=== PATIENT | male | born 1950 | race Caucasian/White ===

== ENCOUNTER 2024-05-11 18:17 | Inpatient (IN) ==
[2024-05-11 19:26] LABS: ABS Basophils 0.1 10^3/uL (0.0-0.1); ABS Eosinophils 0.1 10^3/uL (0.0-0.5); ABS Lymphocytes 1.1 10^3/uL (1.0-4.8); ABS Monocytes 0.5 10^3/uL (0.0-1.1); ABS Neutrophils 5.1 10^3/uL (1.5-7.6); ABS Nucleated RBC 0.02 10^3/ul; Eosinophil % 0.8 %; Hemoglobin 14.8 g/dL (13.2-16.3); Lymphocyte % 15.4 %; Mean Corpuscular Hemoglobin 31.6 pg (27-33); Mean Corpuscular Volume 95.8 fL (80-97); Mean Platelet Volume 9.6 fL (7.5-11.2); Nucleated Red Blood Cells % 0.2 %/100WBC (0.0-0.8); Platelet Count 170 10^3/uL (150-450); Red Cell Distribution Width 15.7 % (12-17); White Blood Count 6.8 10^3/uL (3.6-10.2)
[2024-05-11 19:52] LABS: Albumin 3.8 g/dL (3.2-5.2); Albumin/Globulin Ratio 1.4 (1-3); Creatinine, Serum 1.53 mg/dL (0.67-1.17); Globulin 2.7 g/dL (2-4); Total Bilirubin 1.1 mg/dL (0.2-1.0); Total Protein 6.5 g/dL (6.4-8.9); eGFR CKD-EPI 47.1 (>60)
[2024-05-11 20:06] LABS: TSH Ultra Thyroid Stim Horm 8.17 mcIU/mL (0.34-5.60)
[2024-05-11 20:49] LABS: High Sensitivity Troponin 1 Hr 44 pg/mL (<20)
[2024-05-11] MEDS: Furosemide 40 mg/4 ml IV VIAL IV SLOW PU ONE (21:07)
[2024-05-11] MEDS: Heparin 5000 UNITS/ML 1 mL VIAL SUBCUT SCH (22:14)
[2024-05-11 22:49] LABS: Urine Appearance Clear; Urine Bilirubin Negative (Negative); Urine Blood Negative (Negative); Urine Color Light-Yellow; Urine Glucose Negative (Negative); Urine Ketones Negative (Negative); Urine Nitrite Negative (Negative); Urine Protein 1+ (>=30 mg/dL) (Negative); Urine Urobilinogen Negative (Negative); Urine pH 5.5 (5.0-8.0)
[2024-05-11 22:54] LABS: Urine Bacteria Absent /HPF (Absent); Urine Red Blood Cell 1+(3-5/hpf) /HPF (0-Trace); Urine White Blood Cell Trace(0-5/hpf) /HPF (0-Trace)
[2024-05-12 01:25] LABS: Free T4 0.83 ng/dL (0.61-1.12)
[2024-05-12 05:47] LABS: ABS Eosinophils 0.1 10^3/uL (0.0-0.5); ABS Lymphocytes 0.8 10^3/uL (1.0-4.8); ABS Monocytes 0.5 10^3/uL (0.0-1.1); Eosinophil % 1.2 %; Hematocrit 44.1 % (38-53); Hemoglobin 14.4 g/dL (13.2-16.3); Lymphocyte % 14.5 %; Mean Corpuscular Hemoglobin 31.5 pg (27-33); Mean Corpuscular Hgb Conc 32.6 g/dL (31-36); Mean Corpuscular Volume 96.6 fL (80-97); Mean Platelet Volume 9.5 fL (7.5-11.2); Nucleated Red Blood Cells % 0.1 %/100WBC (0.0-0.8); Platelet Count 163 10^3/uL (150-450); Red Blood Count 4.56 10^6/uL (4.06-5.63); Red Cell Distribution Width 15.7 % (12-17); White Blood Count 5.4 10^3/uL (3.6-10.2)
[2024-05-12 06:19] LABS: Anion Gap 11 mmol/L (2-16); Blood Urea Nitrogen 32 mg/dL (6-24); CO2 Carbon Dioxide 26 mmol/L (22-32); Calcium 8.3 mg/dL (8.6-10.3); Chloride 110 mmol/L (101-111); Creatinine, Serum 1.41 mg/dL (0.67-1.17); Magnesium 1.8 mg/dL (1.9-2.7); Sodium 147 mmol/L (135-145)
[2024-05-12 06:42] LABS: Glucose 89 mg/dL (70-100)
[2024-05-12] MEDS ORDERED: Sulfur Hexaflouride MICROSPHR 25 MG VIAL ONE (07:20)
[2024-05-12] MEDS: Magnesium Sulfate IV 1GM/100ML 1 GM/100 ML BAG IV ONE (07:44)
[2024-05-12] MEDS ORDERED: Furosemide 40 mg/4 ml IV VIAL IV ONE (08:00)
[2024-05-12] MEDS: Furosemide 40 mg/4 ml IV VIAL IV SCH (09:23)
[2024-05-12] MEDS: Iodixanol (CONTRAST) 320 MG/ML 100 ML SDV IV ONE (12:22)
[2024-05-12] MEDS: Potassium Chlor 20 meq TAB.ER PO ONE ×2 (14:11→17:35)
[2024-05-12 16:51] LABS: Calcium 8.4 mg/dL (8.6-10.3); Creatinine, Serum 1.25 mg/dL (0.67-1.17); Potassium 3.3 mmol/L (3.5-5.0); eGFR CKD-EPI 60.1 (>60)
[2024-05-12 17:40] LABS: Magnesium 1.9 mg/dL (1.9-2.7)
[2024-05-12] MEDS: KCL 20 MEQ/100 ML IVPREMIX 20 MEQ/100 ML BAG IV SCH (18:49)
[2024-05-12] MEDS: Enoxaparin 100 MG/ML SYR SUBCUT SCH (20:28)
[2024-05-12] MEDS: Metoprolol Tartrate 5 mg VIAL 5 ml VIAL (1 mg/ml) IV PRN (21:33)
[2024-05-12] MEDS: Sulfur Hexaflouride MICROSPHR 25 MG VIAL IV ONE (23:35)
[2024-05-13 07:47] LABS: ABS Basophils 0.1 10^3/uL (0.0-0.1); ABS Eosinophils 0.1 10^3/uL (0.0-0.5); ABS Lymphocytes 1.1 10^3/uL (1.0-4.8); ABS Monocytes 0.5 10^3/uL (0.0-1.1); ABS Neutrophils 5.2 10^3/uL (1.5-7.6); ABS Nucleated RBC 0.03 10^3/ul; Eosinophil % 1.3 %; Hematocrit 50.3 % (38-53); Hemoglobin 16.9 g/dL (13.2-16.3); Lymphocyte % 15.4 %; Mean Corpuscular Hemoglobin 32.3 pg (27-33); Mean Corpuscular Hgb Conc 33.6 g/dL (31-36); Mean Corpuscular Volume 96.2 fL (80-97); Nucleated Red Blood Cells % 0.4 %/100WBC (0.0-0.8); Platelet Count 185 10^3/uL (150-450); Red Blood Count 5.23 10^6/uL (4.06-5.63); Red Cell Distribution Width 15.7 % (12-17)
[2024-05-13] MEDS ORDERED: fentaNYL 100 mcg/2 ml 50 MCG/ML VIAL ONE (07:56)
[2024-05-13] MEDS ORDERED: Midazolam 5 mg/5 ml VIAL 1 mg/ml 5 ml VIAL (5 mg) ONE (07:57)
[2024-05-13 08:30] LABS: Calcium 9.2 mg/dL (8.6-10.3); Creatinine, Serum 1.22 mg/dL (0.67-1.17); Magnesium 1.9 mg/dL (1.9-2.7); Potassium 4.8 mmol/L (3.5-5.0); eGFR CKD-EPI 61.8 (>60)
[2024-05-13] MEDS ORDERED: Naloxone 0.4 mg VIAL 0.4 mg/ml 1 ml VIAL ONE (08:32)
[2024-05-13] MEDS ORDERED: Flumazenil 0.5 mg/5 ml 0.1 MG/ML 5 ml VIAL ONE (08:32)
[2024-05-13] MEDS: fentaNYL 100 mcg/2 ml 50 MCG/ML VIAL IV SLOW PU ONE (13:24)
[2024-05-13] MEDS: Midazolam 10 mg/10 ml VIAL 1 mg/ml 10 ml VIAL (10 mg) IV SLOW PU ONE (13:25)
[2024-05-13] MEDS: Enoxaparin 100 MG/ML SYR SUBCUT SCH (14:14)
[2024-05-13] MEDS ORDERED: Metoprolol Tartrate 5 mg VIAL 5 ml VIAL (1 mg/ml) IV PRN ×2 (18:30→18:31)
[2024-05-14 06:41] LABS: ABS Eosinophils 0.2 10^3/uL (0.0-0.5); ABS Lymphocytes 0.8 10^3/uL (1.0-4.8); ABS Monocytes 0.4 10^3/uL (0.0-1.1); ABS Nucleated RBC 0.01 10^3/ul; Eosinophil % 3.2 %; Hematocrit 46.4 % (38-53); Hemoglobin 15.6 g/dL (13.2-16.3); Lymphocyte % 15.5 %; Mean Corpuscular Hemoglobin 32.1 pg (27-33); Mean Corpuscular Hgb Conc 33.7 g/dL (31-36); Mean Corpuscular Volume 95.2 fL (80-97); Mean Platelet Volume 9.7 fL (7.5-11.2); Nucleated Red Blood Cells % 0.2 %/100WBC (0.0-0.8); Platelet Count 204 10^3/uL (150-450); Red Blood Count 4.87 10^6/uL (4.06-5.63); Red Cell Distribution Width 15.3 % (12-17); White Blood Count 5.4 10^3/uL (3.6-10.2)
[2024-05-14 06:59] LABS: Calcium 8.8 mg/dL (8.6-10.3); Creatinine, Serum 1.14 mg/dL (0.67-1.17); Magnesium 1.6 mg/dL (1.9-2.7); Potassium 3.6 mmol/L (3.5-5.0); eGFR CKD-EPI 67.1 (>60)
[2024-05-14] MEDS: Potassium Chlor 20 meq TAB.ER PO ONE (10:55)
[2024-05-14] MEDS: Magnesium Sulf 4 GM/100 ML IV 4,000 MG/100 ML BAG IVPB ONE (11:02)
[2024-05-14] MEDS: Bumetanide IV 0.25 MG/ML 4 ml VIAL (1 mg) IV SLOW PU ONE (11:49)
[2024-05-14] MEDS: Digoxin IV 0.5 MG/2 ML AMP (0.25 MG/ML) IV SLOW PU ONE (16:15)
[2024-05-15 06:57] LABS: ABS Eosinophils 0.3 10^3/uL (0.0-0.5); ABS Monocytes 0.3 10^3/uL (0.0-1.1); ABS Neutrophils 2.4 10^3/uL (1.5-7.6); ABS Nucleated RBC 0.01 10^3/ul; Eosinophil % 6.8 %; Hematocrit 44.2 % (38-53); Hemoglobin 14.9 g/dL (13.2-16.3); Lymphocyte % 25.2 %; Mean Corpuscular Hemoglobin 31.9 pg (27-33); Mean Corpuscular Hgb Conc 33.6 g/dL (31-36); Mean Corpuscular Volume 94.8 fL (80-97); Mean Platelet Volume 9.6 fL (7.5-11.2); Nucleated Red Blood Cells % 0.3 %/100WBC (0.0-0.8); Platelet Count 191 10^3/uL (150-450); Red Blood Count 4.66 10^6/uL (4.06-5.63); Red Cell Distribution Width 15.5 % (12-17)
[2024-05-15 08:40] LABS: Calcium 8.2 mg/dL (8.6-10.3); Creatinine, Serum 1.12 mg/dL (0.67-1.17); Potassium 3.7 mmol/L (3.5-5.0); eGFR CKD-EPI 68.5 (>60)
[2024-05-15] MEDS ORDERED: Iron Sucrose 200 MG in NS 0.9% 100 ml BAG 100 ML IVPB SCH (09:00)
[2024-05-15] MEDS: Potassium Chlor 20 meq TAB.ER PO ONE (09:21)
[2024-05-15] MEDS: Digoxin IV 0.5 MG/2 ML AMP (0.25 MG/ML) IV SLOW PU ONE (12:10)
[2024-05-16 07:49] LABS: Calcium 8.6 mg/dL (8.6-10.3); Creatinine, Serum 1.03 mg/dL (0.67-1.17); Magnesium 1.9 mg/dL (1.9-2.7); Potassium 4.2 mmol/L (3.5-5.0); eGFR CKD-EPI 75.8 (>60)
[2024-05-17 05:32] VITALS: BP 122/81
[2024-05-17 07:07] LABS: Calcium 8.4 mg/dL (8.6-10.3); Creatinine, Serum 1.04 mg/dL (0.67-1.17); Potassium 4.2 mmol/L (3.5-5.0); eGFR CKD-EPI 74.9 (>60)
[2024-05-17 07:38] LABS: ABS Basophils 0.1 10^3/uL (0.0-0.1); ABS Eosinophils 0.3 10^3/uL (0.0-0.5); ABS Lymphocytes 1.1 10^3/uL (1.0-4.8); ABS Monocytes 0.4 10^3/uL (0.0-1.1); ABS Neutrophils 3.3 10^3/uL (1.5-7.6); Eosinophil % 5.3 %; Hematocrit 46.6 % (38-53); Hemoglobin 15.6 g/dL (13.2-16.3); Lymphocyte % 20.9 %; Mean Corpuscular Hemoglobin 31.6 pg (27-33); Mean Corpuscular Hgb Conc 33.4 g/dL (31-36); Mean Corpuscular Volume 94.8 fL (80-97); Mean Platelet Volume 9.5 fL (7.5-11.2); Nucleated Red Blood Cells % 0.1 %/100WBC (0.0-0.8); Platelet Count 208 10^3/uL (150-450); Red Blood Count 4.92 10^6/uL (4.06-5.63); Red Cell Distribution Width 15.2 % (12-17); White Blood Count 5.2 10^3/uL (3.6-10.2)
[2024-05-17] MEDS: Ferric Gluconate IV 125 MG in NS 0.9% 100 ML IVPB ONE (09:16)
== END 2024-05-17 10:51 | disposition home or self-care (01) | DRG 291 ==
LOC: ED 18:17 → SUATTDRO 21:39 → EDHOLD 21:39 → MEDTELE 05-12 17:28
PROVIDERS: ADMIT Internal Medicine; ATTEND Student in an Organized Health Care Education/Training Program